=== PATIENT | male | born 1975 | race Caucasian/White ===

== ENCOUNTER 2018-12-19 14:38 | Emergency (ER) | payer BC, OTHER, SELFPAY ==
[2018-12-19] MEDS ORDERED: diphenhydrAMINE 50 MG/ML VIAL ONE (14:57)
[2018-12-19] MEDS ORDERED: Famotidine In NaCl 20 mg/50 ml Premix Bag ONE (14:57)
[2018-12-19] MEDS ORDERED: methylPREDNISolone Sod Succ/PF 125 MG/2 ML VIAL ONE (14:57)
== END 2018-12-19 17:04 | disposition home or self-care (01) ==
LOC: MADERS 14:38
DX: T63.461A Toxic effect of venom of wasps, accidental (unintentional), initial encounter (principal)
CPT/HCPCS: 96374; 96375; J1200; J2930